=== PATIENT | male | born 1960 | race Caucasian/White ===

== ENCOUNTER 2017-01-25 03:01 | Emergency (ER) | payer MEDICAID ==
[~2017-01-25] VITALS: Ht 167.6 cm; Wt 70.0 kg
[~2017-01-25 03:01] MED LIST: NO MEDS
[2017-01-25 03:04] VITALS: TEMP 97.1
[2017-01-25 03:06] VITALS: Ht 167.6 cm; Wt 70.0 kg
[2017-01-25] MEDS ORDERED: SOD CHLORIDE 0.9% 1,000 ML IV STA (03:06)
[2017-01-25] MEDS ORDERED: ONDANSETRON 4 MG INJ IV STA (03:06)
[2017-01-25] MEDS ORDERED: morphine 4 MG/ML VIAL IV STA (03:06)
[2017-01-25 03:31] LABS: URINE BLOOD (Dip) POC Negative (NEGATIVE)
[2017-01-25 03:54] LABS: ADD UMIC NO; UR ASCORBIC ACID NEGATIVE (NEGATIVE); UR BILIRUBIN (Dip) NEGATIVE (NEGATIVE); UR BLOOD (Dip) NEGATIVE (NEGATIVE); UR CLARITY SLIGHTLY CLOUDY (CLEAR); UR COLOR YELLOW (YELLOW); UR GLUCOSE (Dip) NEGATIVE (NEGATIVE); UR KETONES (Dip) NEGATIVE (NEGATIVE); UR LEUKOCYTE ESTERASE (Dip) NEGATIVE Leu/ul (NEGATIVE); UR MUCUS MANY /HPF (NONE SEEN); UR NITRITE (Dip) NEGATIVE (NEGATIVE); UR RBC 0 /HPF (0-5); UR SPECIFIC GRAVITY (Dip) 1.026 (1.003-1.030); UR TOTAL PROTEIN (Dip) NEGATIVE (NEGATIVE); UR UROBILINOGEN (Dip) NEGATIVE (NEGATIVE)
[2017-01-25 04:09] LABS: BASOPHILS % 0.4 % (0.0-2.0); EOSINOPHILS # 0.2 10^3/ul (0.0-0.5); EOSINOPHILS % 2.2 % (0.0-7.0); HEMATOCRIT 43.7 % (42.0-52.0); HEMOGLOBIN 15.1 g/dl (14.0-18.0); LYMPHOCYTES # 3.1 10^3/ul (0.8-2.9); LYMPHOCYTES % 37.3 % (15.0-51.0); MEAN CORPUSCULAR HEMOGLOBIN 30.3 pg (29.0-33.0); MEAN CORPUSCULAR HGB CONC 34.6 g/dl (32.0-37.0); MEAN CORPUSCULAR VOLUME 87.8 fl (82.0-101.0); MEAN PLATELET VOLUME 11.7 fl (7.4-10.4); MONOCYTE # 0.5 10^3/ul (0.3-0.9); MONOCYTES % 5.4 % (0.0-11.0); NEUTROPHIL # 4.5 10^3/ul (1.6-7.5); NEUTROPHILS % 54.6 % (39.0-77.0); PLATELET COUNT 224 10^3/UL (140-415); RED BLOOD COUNT 4.98 10^6/ul (4.70-6.10); RED CELL DISTRIBUTION WIDTH 11.9 % (11.5-14.5); WHITE BLOOD COUNT 8.3 10^3/ul (4.8-10.8)
[2017-01-25 04:10] LABS: ALBUMIN 4.2 g/dl (3.3-4.9); ALBUMIN/GLOBULIN RATIO 1.16; BILIRUBIN,INDIRECT 0.3 mg/dl (0-1.1); BILIRUBIN,TOTAL 0.3 mg/dl (0.2-1.3); CALCIUM 9.8 mg/dl (8.4-10.2); CREATININE 0.98 mg/dl (0.61-1.24); POTASSIUM 3.8 mmol/L (3.5-5.1); TOTAL PROTEIN 7.8 g/dl (6.1-8.1)
--- NOTE | 2017-01-25 04:42 | RADRPT ---
PROCEDURE: XR Chest. CLINICAL INDICATION: Abdominal pain TECHNIQUE: AP Portable chest. COMPARISON: No pertinent prior examinations were submitted for comparison. FINDINGS: The cardiomediastinal silhouette is normal. The aorta is ectatic. The lung volumes are low with mild basilar atelectasis. Right hemidiaphragm is elevated. No focal consolidation, pleural effusion or p neumothorax is seen. The osseous structures are intact. IMPRESSION: No radiographic evidence of acute cardiopulmonary disease. Low lung volumes and mild basilar atelectasis. Physician Savi Date Time Electronically viewed and signed by Physician Savi on 01/25/2017 04:41 CS/
[2017-01-25] MEDS ORDERED: SOD CHLORIDE 0.9% 100 ML ONE (04:44)
[2017-01-25] MEDS ORDERED: IOHEXOL 300MG/ML 150 ML BTL ONE (04:44)
--- NOTE | 2017-01-25 04:54 | RADRPT ---
PROCEDURE: CT Abdomen and pelvis with contrast. CLINICAL INDICATION: Abdominal pain. TECHNIQUE: CT scan of the abdomen and pelvis with contrast was performed on a multi-detector high -resolution CT scanner. The patient was scanned following the uncomplicated administration of 100 c c of Omnipaque 300 intravenous contrast. Coronal and sagittal reformatted images were obtained from the axial source images. Images were reviewed on a high-resolution PACS workstation. DICOM images a re available. One or more of the following dose reduction techniques were used: - Automated exposure control. - Adjustment of the mA and/or kV according to patient size. - Use of iterative reconstruction technique. Exam CTD/vol = 18.87 mGy. Total exam DLP = 1336.13 mGy-cm. COMPARISON: None. FINDINGS: Evaluation of the lung bases demonstrates no pleural or parenchymal disease. Abdomen: The liver is normal in size and diffusely low in attenuation consistent with fatty infiltr ation. There is no focal mass or dilatation of the biliary tree. The gallbladder is not distended. The spleen, pancreas and bilateral adrenal glands are within normal limits. Bilateral kidneys are normal in size with symmetric enhancement. There are left renal cysts. There is no hydronephrosis or hydroureter. There is no retroperitoneal adenopathy. The abdominal aorta is of normal caliber w ith mild scattered atherosclerotic calcifications. There are scattered diverticuli and diverticulosis of the sigmoid colon with mild thickening and str anding involving the mid to distal sigmoid colon. There is no bowel obstruction or free air. A nor mal appendix is identified. There is no ascites. Pelvis: The bladder is unremarkable. There are bilateral small inguinal hernias containing fat. Th ere is mild pelvic stranding and trace free fluid. The prostate and seminal vesicles are within nor mal limits. There is no significant pelvic adenopathy. Evaluation of the osseous structures demonstrates no suspicious lytic or blastic lesion. IMPRESSION: Colonic diverticulosis with mild to moderate sigmoid diverticulitis. Fatty infiltration of the liver. Left renal cysts. Mild vascular calcifications reflective of atherosclerosis. Bilateral small inguinal hernias containing fat. Mild pelvic stranding and trace free fluid. .Roger Watts MD, Date Time Electronically viewed and signed by .Roger Watts MD, on 01/25/2017 04:54 .T/
--- NOTE | 2017-01-25 05:19 | ERD ---
ER Documentation Chief Complaint Chief Complaint Abdonimal pain onset 4 hours denies N/V. Pain on the left lower quad HPI This is a very 56-year-old man comes in with complaints of abdominal pain started 4 hours ago. Pain is mild to moderate intensity. No fevers no chills. No other current complaints. No change in bowel or bladder habits. ROS All systems reviewed and are negative except as per history of present illness. Medications Home Meds Reported Medications [No Meds] No Conflict Check 02/27/10 Allergies Allergies: Coded Allergies: No Known Drug Allergies (Verified Allergy, Mild, 02/27/10) PMhx/Soc History of Surgery: Yes (TONSILLECTOMY) Anesthesia Reaction: No Hx Neurological Disorder: No Hx Respiratory Disorders: No Hx Cardiac Disorders: Yes (htn) Hx Psychiatric Problems: No Hx Miscellaneous Medical Probl: Yes (diverticulosis, unsure if he has DM?) Hx Alcohol Use: Yes (occasional) Hx Substance Use: No Hx Tobacco Use: Yes (quit 8 years ago) Smoking Status: Former smoker Physical Exam Vitals Vital Signs Date Time Temp Pulse Resp B/P Pulse Ox O2 Delivery O2 Flow Rate FiO2 01/25/17 03:06 98.3 104 20 161/94 96 01/25/17 03:04 97.1 104 24 161/94 96 Room Air Physical Exam Const: [] Head: Atraumatic Eyes: Normal Conjunctiva ENT: Normal External Ears, Nose and Mouth. Neck: Full range of motion..~ No meningismus. Resp: Clear to auscultation bilaterally Cardio: Regular rate and rhythm, no murmurs Abd: Soft, non tender, non distended. Normal bowel sounds Skin: No petechiae or rashes Back: No midline or flank tenderness Ext: No cyanosis, or edema Neur: Awake and alert Psych: Normal Mood and Affect Result Diagram: 01/25/17 0320 01/25/17 0320 Results 24 hrs Laboratory Tests Test 01/25/17 03:20 01/25/17 03:29 White Blood Count 8.310^3/ul Red Blood Count 4.9810^6/ul Hemoglobin 15.1g/dl Hematocrit 43.7% Mean Corpuscular Volume 87.8fl Mean Corpuscular Hemoglobin 30.3pg Mean Corpuscular Hemoglobin Concent 34.6g/dl Red Cell Distribution Width 11.9% Platelet Count 86003^3/UL Mean Platelet Volume 11.7fl Neutrophils % 54.6% Lymphocytes % 37.3% Monocytes % 5.4% Eosinophils % 2.2% Basophils % 0.4% Nucleated Red Blood Cells % 0.0/100WBC Neutrophils # 4.510^3/ul Lymphocytes # 3.110^3/ul Monocytes # 0.510^3/ul Eosinophils # 0.210^3/ul Basophils # 0.010^3/ul Nucleated Red Blood Cells # 0.010^3/ul Urine Color YELLOW Urine Clarity SLIGHTLY CLOUDY Urine pH 5.0 Urine Specific Dixon 1.026 Urine Ketones NEGATIVEmg/dL Urine Nitrite NEGATIVEmg/dL Urine Bilirubin NEGATIVEmg/dL Urine Urobilinogen NEGATIVEmg/dL Urine Leukocyte Esterase NEGATIVELeu/ul Urine Microscopic RBC 0/HPF Urine Microscopic WBC 3/HPF Urine Mucus MANY/HPF Urine Hemoglobin NEGATIVEmg/dL Urine Glucose NEGATIVEmg/dL Urine Total Protein NEGATIVEmg/dl Sodium Level 145mmol/L Potassium Level 3.8mmol/L Chloride Level 105mmol/L Carbon Dioxide Level 25mmol/L Anion Gap 19 Blood Urea Nitrogen 17mg/dl Creatinine 0.98mg/dl Glucose Level 138mg/dl Calcium Level 9.8mg/dl Total Bilirubin 0.3mg/dl Direct Bilirubin 0.00mg/dl Indirect Bilirubin 0.3mg/dl Aspartate Amino Transf (AST/SGOT) 43IU/L Alanine Aminotransferase (ALT/SGPT) 79IU/L Alkaline Phosphatase 79IU/L Total Protein 7.8g/dl Albumin 4.2g/dl Globulin 3.60g/dl Albumin/Globulin Ratio 1.16 Lipase 210U/L Bedside Urine pH (LAB) 5.5 Bedside Urine Protein (LAB) Trace Bedside Urine Glucose (UA) Negative Bedside Urine Ketones (LAB) Negative Bedside Urine Blood Negative Bedside Urine Nitrite (LAB) Negative Bedside Urine Leukocyte Esterase (L Negative Current Medications Medications (Trade) Dose Ordered Sig/Molly Route PRN Reason Start Time Stop Time Status Last Admin Dose Admin Sodium Chloride (NS) 1,000 ml @ 1,000 mls/hr Q1H STAT IV 01/25/17 03:06 01/25/17 04:05 DC 01/25/17 03:30 Morphine Sulfate (morphine) 4 mg ONCE STAT IV 01/25/17 03:06 01/25/17 03:19 DC 01/25/17 03:29 Ondansetron HCl 4 mg 4 mg ONCE STAT IV 01/25/17 03:06 01/25/17 03:19 DC 01/25/17 03:30 Sodium Chloride (NS) 100 ml @ ud STK-MED ONCE .ROUTE 01/25/17 04:44 01/25/17 04:45 DC 01/25/17 04:45 Iohexol (Omnipaque 300mg/ ml) 150 ml STK-MED ONCE .ROUTE 01/25/17 04:44 01/25/17 04:45 DC 01/25/17 04:45 Procedures/MDM Medical decision-makin-year-old male with mild diverticulitis. At this point clinically stable for outpatient management. Discharge home with Cipro and Flagyl. Follow-up in 8 hours for serial abdominal exams. Serial abdominal exams in the emergency department were negative for pain Departure Diagnosis: Primary Impression: Abdominal pain Abdominal location: left lower quadrant Qualified Code: R10.32 - Left lower quadrant pain Condition: Stable BARBARA ZALDIVAR Jan 25, 2017 05:19
[2017-01-25] MEDS ORDERED: HYDR-902 PO (05:20)
[2017-01-25] MEDS ORDERED: CIPR500T4 PO (05:20)
[2017-01-25] MEDS ORDERED: METR500T PO (05:20)
[2017-01-25 06:00] VITALS: BP 149/90; PULSE 77; RESP 20
== END 2017-01-25 06:14 | disposition home or self-care (01) ==
LOC: E/R 03:01
DX: R10.32 Left lower quadrant pain (principal); I10 Essential (primary) hypertension; Z87.891 Personal history of nicotine dependence
CPT/HCPCS: 36415; 71010; 74177; 80053; 81001; 83690; 85025; 96374; 96375; J2270; J2405; J7030; Q9967; Z7502; Z7610; 81003